=== PATIENT | male | born 1965 | race Caucasian/White ===

== ENCOUNTER 2017-12-03 13:10 | Emergency (ER) | payer MEDICARE, MEDICAID ==
[~2017-12-03] VITALS: Ht 565.3 cm; Wt 67.0 kg
[~2017-12-03 13:10] MED LIST: ATOR10TA87 PO; CEPH-357 PO; COL100C PO; FENO145T38 PO; FEXO180T PO; FLUT16SP2 NS; FOLI1TAB24 PO; HYDR50CA PO; LORA1TAB PO; MAGN800O PO; METH500T4 PO; MISO100T47 PO; OMEP-84 PO; QUET-1 PO; RISP1SOL PO; SENN17.26 PO; SYN0.025T PO; TRAZ-91 PO; VALP250S PO; VITA400T10 PO; ZOF4T PO; ZOLP5TAB8 PO; [UNRECOGNIZED DRUG - CODE] PO
[2017-12-03 13:18] VITALS: BP 156/96
== END 2017-12-03 15:22 | disposition home or self-care (01) ==
LOC: ER 13:10
DX: M70.42 Prepatellar bursitis, left knee (principal); M25.562 Pain in left knee; E78.00 Pure hypercholesterolemia, unspecified; J45.909 Unspecified asthma, uncomplicated; K21.9 Gastro-esophageal reflux disease without esophagitis; Z86.14 Personal history of Methicillin resistant Staphylococcus aureus infection; Z79.899 Other long term (current) drug therapy
CPT/HCPCS: 99281

== ENCOUNTER 2024-08-23 09:20 | Emergency (ER) | payer MEDICARE, MEDICAID ==
[~2024-08-23] VITALS: Ht 160 cm; Wt 72.0 kg
[~2024-08-23 09:20] MED LIST changes: -FOLI1TAB24 PO; +FOLI1TAB26 PO; -MISO100T47 PO; +MISO100T53 PO
--- NOTE | 2024-08-23 10:08 | Physician Documentation ---
History of Present Illness ~ Chief Complaint: Testicular Pain Stated Complaint: SWOLLEN TESTICLES Time Seen by MD: 09:57 Primary Medical Doctor: KEENAN YEBOAH [facility] Source: other (Caregivers) HPI This is a 59-year-old developmentally delayed male who presents accompanied by caregivers who report patient has had reddened swollen scrotum and testicles for the past three days, caregivers report they have been using clotrimazole cream patient's testicles for redness and itching in the redness has decreased though the swelling persists. Caregivers report patient is otherwise well and has been without fever. Exam is limited due to patient's baseline behaviors of grabbing and striking at staff. Medication Reconciliation Allergies: Coded Allergies: No Known Allergies (Unverified , 04/27/09) Scheduled Atorvastatin Calcium* (Lipitor*), 10 MG PO HS, (Reported) Cefdinir* (Cefdinir*), 1 CAP PO Q12H Cephalexin Monohydrate* (Keflex*), 500 MG PO QID, (Reported) Docusate Sodium* (Colace*), 200 MG PO BID, (Reported) Fenofibrate Nanocrystallized* (Tricor*), 145 MG PO DAILY, (Reported) Fexofenadine* (Elina*), 180 MG PO DAILY, (Reported) Folic Acid/Mv,Fe,Other Min/Lut (Certavite With Lutein Tablet), 1 EACH PO DAILY, (Reported) Levothyroxine Sodium* (Synthroid*), 50 MCG PO DAILY, (Reported) Lorazepam* (Ativan*), 1 MG PO at 8am, 3pm, and 8pm, (Reported) Magnesium Hydroxide (Milk Of Magnesia), 800 MG PO DAILY, (Reported) Methylcellulose (Citrucel), 3.5 GM PO TID, (Reported) Misoprostol* (Cytotec*), 100 MCG PO AC, (Reported) Omeprazole* (Prilosec*), 20 MG PO BID, (Reported) Ondansetron ODT* (Zofran ODT*), 4 MG PO Q6H Quetiapine Fumarate* (Seroquel*), 200 MG PO HS, (Reported) Quetiapine Fumarate* (Seroquel*), 100 MG PO at 8am, noon, and 4p, (Reported) Risperidone (Risperdal), 2 ML PO TID, (Reported) Sennosides (Laxative), 1 TAB PO HS, (Reported) Sulfamethoxazole/Trimethoprim (Sulfamethoxazole-Tmp Ds Tablet), 2 EACH PO BID, (Reported) Trazodone Hcl* (Trazodone Hcl*), 50 MG PO HS, (Reported) Valproic Acid (As Sodium Salt) (Depakene), 1 TSP PO every morning, (Reported) Valproic Acid (As Sodium Salt) (Depakene), 6 TSP PO HS, (Reported) Vitamin E Mixed (Vitamin E), 400 UNIT PO BID, (Reported) Zolpidem Tartrate* (Ambien*), 10 MG PO HS, (Reported) Scheduled PRN Fluticasone Propionate (Flonase), 16 GM NS PRN PRN for allergies, (Reported) Hydroxyzine Pamoate (Vistaril), 50 MG PO Q6H PRN for anxiety, (Reported) Past Medical History Past Medical History: High Cholesterol, Asthma, GERD, MRSA Abscess Past Surgical History: no surgical history Alcohol Use: None Drug Use: none Lives with: Other Lives In: Assisted Care Occupation: disabled Review of Systems ROS Scrotal swelling as stated above in the HPI, otherwise all systems are reviewed and negative. Physical Exam Vital Signs: Weight: 72.000 Physical Exam VITALS: Reviewed and as above. GENERAL: Alert, nontoxic appearing, no apparent distress. RESPIRATORY: No increased work of breathing, no respiratory distress, speaking in full clear sentences, lung sounds clear in all cooper CV: Regular rate and rhythm no murmur GI: Nondistended, nontender : Scrotal edema and tenderness, no ecchymosis, no erythema Progress Results/Orders Results/Orders Orders - AYESHA HOOK Non-Behavioral Restraints (08/23/24 10:03) Completed Orders - AYESHA HOOK Lorazepam Inj (Ativan Inj) (08/23/24 10:15) Medical Decision Making Findings This 59-year-old male was brought in by caregivers due to three days of scrotal edema, physical exam demonstrated edematous tender scrotum though exam was limited due to patient's nonverbal status and being uncooperative with exam and attempting to grab and strike at me during exam. Patient was medicated for anxiety without significant decrease in behaviors. Due to patient's behavior and inability to sit still for ultrasound as well as inability to obtain a urine sample can not definitively diagnose cause of scrotal edema and can not rule out all serious possibilities, though with shared decision-making with caregivers patient will be treated empirically for epididymitis and/or UTI, caregivers are to continue patient has clotrimazole for redness and itching to testicles. As patient has had pain and swelling to the testicles for over three days there is very low chance of testicular salvage if this was in fact a testicular torsion therefore risk of providing additional sedation to obtain an ultrasound to rule out testicular torsion outweighs the potential benefit of diagnosing testicular torsion. Remainder of physical exam was benign and patient is otherwise in his baseline, unable to obtain full set of vital signs due to patient behavior though patient appears well. Return to care precautions discussed with the patient's caregivers and patient is appropriate for outpatient follow up. Genital Diff Dx:Considerations: Include: Abscess, Balanitis, Cellulitis, Epi didymitis, Entrapment injury, Ann's gangrene, Foreign body, Hydrocele, Testicular torsion, Urinary retention, UTI Departure Disposition: 01 HOME / SELF CARE / HOMELESS Impression: Primary Impression: Swelling of scrotum Condition: Fair Discharge Instructions: Scrotal Swelling Additional Instructions: As we are not able to obtain a urine sample or the ultrasound you are going to treat empirically with a course of antibiotics for possible testicular infection, this antibiotic will also cover for possible urinary tract infection. Continue to use the clotrimazole cream for redness and irritation to the scrot um as his symptoms may be related to inflammation of the scrotum from his grabbing and itching as well. Please follow up with his primary care provider in the next few days. Please return to the emergency department for any new or worsening concerning symptoms. Referrals: NO PRIMARY CARE PROVIDER (PCP) Prescriptions Cefdinir* (Cefdinir*) 300 Mg Capsule 1 CAP PO Q12H for 10 Days, #20 CAP Prov: AYESHA HOOK 08/23/24 Education Educated: Other (Caregivers) Educated regarding: diagnosis, treatment, prognosis, need for follow up Signature Scribe Signature: No scribe Attestation: The note accurately reflects work and decisions made by me.DMITRI Garcia 08/23/24 20:59 AYESHA HOOK August 23, 2024 10:08
[2024-08-23] MEDS: LORazepam 2 mg/ml vial IM ONE (10:20)
[2024-08-23] MEDS ORDERED: CEFD300C3 PO (11:27)
== END 2024-08-23 11:43 | disposition home or self-care (01) ==
LOC: ER 09:21
DX: N50.89 Other specified disorders of the male genital organs (principal); E78.00 Pure hypercholesterolemia, unspecified; J45.909 Unspecified asthma, uncomplicated; K21.9 Gastro-esophageal reflux disease without esophagitis
CPT/HCPCS: 96372; 99284; J2060